=== PATIENT | male | born 1995 | race Two or more races ===

== ENCOUNTER 2016-04-16 17:52 | Emergency (ER) | payer OTHER ==
[2016-04-16 18:02] VITALS: RESP 16
[2016-04-16] MEDS ORDERED: ONDANSETRON 4 MG/2 ML VIAL IVP ONE (18:15)
[2016-04-16] MEDS ORDERED: NS 1,000 ML IV ONE ×2 (18:15)
[2016-04-16 18:33] LABS: % IMMATURE GRANULYOCYTES 0.3 % (0.0-1.1); ABSOLUTE IMMATURE GRANULOCYTES 0.04 10^3/uL (0.00-0.10); ADD DIFF? NO; ADD MORPH? NO; ADD SCAN? NO; ATYPICAL LYMPHOCYTE FLAG 10 (0-99); FRAGMENT RBC FLAG 0 (0-99); HEMATOCRIT 47.1 % (40.0-51.0); HEMOGLOBIN 15.8 g/dL (13.7-17.5); LEFT SHIFT FLG 0 (0-99); LIPEMIA HEMOLYSIS FLAG 80 (0-99); MEAN CELL HEMOGLOBIN CONCENTR. 33.5 g/dL (32.4-36.7); MEAN CELL VOLUME 86.4 fL (81.5-99.8); MEAN PLATELET VOLUME 11.7 fL (8.7-11.7); PLATELET CLUMPS FLAG 10 (0-99); PLATELET COUNT 204 10^3/uL (150-400); RED BLOOD CELL COUNT 5.45 10^6/uL (4.40-6.38)
[2016-04-16 18:46] LABS: ALANINE AMINOTRANSFERASE 52 IU/L (21-72); ALBUMIN 4.5 g/dL (3.5-5.0); ALKALINE PHOSPHATASE 56 IU/L (38-126); ANION GAP 15 mEq/L (8-16); ASPARTATE AMINOTRANSFERASE 21 IU/L (17-59); BILIRUBIN,TOTAL 1.2 mg/dL (0.1-1.4); BILIRUBIN-CONJUGATED 0.3 mg/dL (0.0-0.5); BILIRUBIN-UNCONJUGATED 0.9 mg/dL (0.0-1.1); CARBON DIOXIDE 27 mEq/l (22-31); CHLORIDE 102 mEq/L (97-110); GLOMERULAR FILTRATION RATE > 60; GLUCOSE 109 mg/dL (70-100); POTASSIUM 4.5 mEq/L (3.5-5.2); SODIUM 144 mEq/L (134-144); TOTAL PROTEIN 7.9 g/dL (6.3-8.2)
--- NOTE | 2016-04-16 19:20 | EDPHY ---
H & P Stated Complaint: ABD PAIN, N/V HPI/ROS: Chief complaint: Abdominal pain with nausea, vomiting and diarrhea History of present illness: This is a 21-year-old male who presents to the emergency depart with abdominal pain with associated nausea, vomiting and diarrhea. Patient just flew in from [facility]. On his flight to the [facility] he states he started to feel nauseous. He developed abdominal cramping, he has had multiple episodes of vomiting and diarrhea described as nonbloody. Denies alleviating factors. He denies other associated signs or symptoms including no fevers. Review of systems: A 10 point review of systems was obtained and other than described above was negative - Personal History Current Tetanus/Diphtheria Vaccine: Unsure - Medical/Surgical History Hx Asthma: Yes Hx Chronic Respiratory Disease: No Hx Diabetes: No Hx Cardiac Disease: No Hx Renal Disease: No Hx Cirrhosis: No Hx Alcoholism: No Hx HIV/AIDS: No Hx Splenectomy or Spleen Trauma: No Other PMH: R shoulder dislocations - Social History Smoking Status: Never smoked - Physical Exam Exam: General Appearance: Alert, nontoxic. Eyes: Pupils equal and round no pallor or injection. ENT, Mouth: Mucous membranes moist. Respiratory: There are no retractions, lungs are clear to auscultation. Cardiovascular: Regular rate and rhythm. Gastrointestinal: Abdomen is soft and non tender, no masses, bowel sounds normal. Neurological: Alert and oriented. Strength and sensation intact and symmetrical. Skin: Warm and dry, no rashes. Musculoskeletal: Neck is supple non tender. Extremities are symmetrical, full range of motion. Psychiatric: Patient is oriented X 3, there is no agitation. Constitutional: Initial Vital Signs Temperature (C) 36.8 C 04/16/16 18:00 Heart Rate 97 04/16/16 18:00 Respiratory Rate 16 04/16/16 18:00 Blood Pressure 118/85 H 04/16/16 18:00 O2 Sat (%) 96 04/16/16 18:00 O2 Delivery Mode Room Air Allergies/Adverse Reactions: No Known Allergies Allergy (Unverified 07/22/14 13:15) Home Medications: Medication Instructions Recorded Albuterol 07/22/14 Ondansetron Odt [Zofran Odt 4 mg 4 mg PO Q4 #10 tab 04/16/16 (*)] Medical Decision Making ED Course/Re-evaluation: Patient seen under the supervision of my secondary supervising physician Dr. Jay Cordero. Patient presents to the emergency department with abdominal cramping and nausea, vomiting and diarrhea. Patient is nontoxic. Afebrile and vital signs are stable. Serial abdominal exams are benign. I believe history, physical exam and evaluation is consistent with an enteritis. Patient is tolerating oral challenges. I believe he is appropriate for outpatient management. Patient is discharged home. Home care is discussed. Return precautions are given. Patient voiced understanding and agreement with plan. Differential Diagnosis: Included but not limited to gastritis, gastroenteritis, biliary tract disease, pancreatitis, colitis - Data Points Laboratory Results: Laboratory Results 04/16/16 18:25 04/16/16 18:25 04/16/16 18:25 WBC 13.09 H 10^3/uL (3.80-9.50) RBC 5.45 10^6/uL (4.40-6.38) Hgb 15.8 g/dL (13.7-17.5) Hct 47.1 % (40.0-51.0) MCV 86.4 fL (81.5-99.8) MCH 29.0 pg (27.9-34.1) MCHC 33.5 g/dL (32.4-36.7) RDW 13.0 % (11.5-15.2) Plt Count 204 10^3/uL (150-400) MPV 11.7 fL (8.7-11.7) Neut % (Auto) 92.2 H % (39.3-74.2) Lymph % (Auto) 3.7 L % (15.0-45.0) [place] % (Auto) 3.6 L % (4.5-13.0) Eos % (Auto) 0.1 L % (0.6-7.6) Baso % (Auto) 0.1 L % (0.3-1.7) Nucleat RBC Rel Count 0.0 % (0.0-0.2) Absolute Neuts (auto) 12.08 H 10^3/uL (1.70-6.50) Absolute Lymphs (auto) 0.48 L 10^3/uL (1.00-3.00) Absolute Monos (auto) 0.47 10^3/uL (0.30-0.80) Absolute Eos (auto) 0.01 L 10^3/uL (0.03-0.40) Absolute Basos (auto) 0.01 L 10^3/uL (0.02-0.10) Absolute Nucleated RBC 0.00 10^3/uL (0-0.01) Immature Gran % 0.3 % (0.0-1.1) Immature Gran # 0.04 10^3/uL (0.00-0.10) Sodium 144 mEq/L (134-144) Potassium 4.5 mEq/L (3.5-5.2) Chloride 102 mEq/L (97-110) Carbon Dioxide 27 mEq/l (22-31) Anion Gap 15 mEq/L (8-16) BUN 19 mg/dL (7-23) Creatinine 1.0 mg/dL (0.7-1.3) Estimated GFR > 60 Glucose 109 H mg/dL (70-100) Calcium 10.0 mg/dL (8.5-10.4) Total Bilirubin 1.2 mg/dL (0.1-1.4) Conjugated Bilirubin 0.3 mg/dL (0.0-0.5) Unconjugated Bilirubin 0.9 mg/dL (0.0-1.1) AST 21 IU/L (17-59) ALT 52 IU/L (21-72) Alkaline Phosphatase 56 IU/L (38-126) Total Protein 7.9 g/dL (6.3-8.2) Albumin 4.5 g/dL (3.5-5.0) Lipase 45.0 IU/L (23-300) Medications Given: Discontinued Medications Sodium Chloride (Ns) 1,000 mls @ 0 mls/hr IV ONCE ONE PRN Reason: Wide Open Stop: 04/16/16 18:16 Last Admin: 04/16/16 18:31 Dose: 1,000 mls Sodium Chloride (Ns) 1,000 mls @ 0 mls/hr IV ONCE ONE PRN Reason: Wide Open Stop: 04/16/16 18:16 Last Admin: 04/16/16 18:32 Dose: 1,000 mls Ondansetron HCl (Zofran) 4 mg IVP EDNOW ONE Stop: 04/16/16 18:16 Last Admin: 04/16/16 18:32 Dose: 4 mg Departure - Departure Disposition: Home, Routine, Self-Care Clinical Impression: Abdominal pain Qualifiers: Abdominal location: generalized Qualifier Code: (R10.84) Generalized abdominal pain Condition: Good Instructions: Acute Abdominal Pain (ED) Additional Instructions: Follow-up with a primary care doctor for recheck next week when he returns home Drink plenty of fluids to stay hydrated If symptoms worsen or new symptoms develop return to the emergency department for recheck Referrals: NONE *PRIMARY CARE P,. [Primary Care Provider] - As per Instructions Prescriptions: Ondansetron Odt [Zofran Odt 4 mg (*)] 4 mg PO Q4 #10 tab
[2016-04-16 20:02] VITALS: BP 114/78; PULSE 88; TEMP 97.9; O2SAT 97
== END 2016-04-16 20:02 | disposition home or self-care (01) ==
DX: R10.84 Generalized abdominal pain (principal)
CPT/HCPCS: 96374; J2405